=== PATIENT | female | born 2000 | race Caucasian/White ===

== ENCOUNTER 2020-10-01 05:50 | Emergency (ER) | payer MEDICAID ==
[~2020-10-01] VITALS: Ht 160 cm; Wt 93.0 kg
[2020-10-01] MEDS ORDERED: KETOROLAC10 MG PO (06:31)
[2020-10-01] MEDS ORDERED: CLEOCIN HCL300 MG PO (06:31)
== END 2020-10-01 06:50 | disposition home or self-care (01) ==
LOC: ED 05:50
DX: S61.213A Laceration without foreign body of left middle finger without damage to nail, initial encounter (principal); Z88.0 Allergy status to penicillin; W26.0XXA Contact with knife, initial encounter; Y93.89 Activity, other specified; Y92.89 Other specified places as the place of occurrence of the external cause; Y99.8 Other external cause status